=== PATIENT | male | born 1965 | race Caucasian/White ===

== ENCOUNTER → 2017-04-23 | Outpatient (CLI) | payer OTHER, MEDICAID | LOC: FCPNEURO 20:00 | PROVIDERS: ATTEND Psychiatry & Neurology Sleep Medicine | DX: G47.33 Obstructive sleep apnea (adult) (pediatric) (principal); G47.37 Central sleep apnea in conditions classified elsewhere ==

== ENCOUNTER 2017-12-22 20:38 | Emergency (ER) | payer OTHER, MEDICAID ==
--- NOTE | 2017-12-22 20:48 | EDPHY ---
H & P Time Seen by Provider: 12/22/17 20:48 HPI/ROS: HPI CHIEF COMPLAINT: Bilateral eye drainage HISTORY OF PRESENT ILLNESS: Patient very pleasant 52-year-old male, presents emergency room with 1 day of yellow discharge from both eyes and crusting. He states he thinks this all started after he got some shampoo in his eyes. He denies any pain. Denies fever. Denies visual disturbance or loss of vision or eye pain. However he noted ongoing crusting and drainage from both eyes. He states this initially started in his right eye early today. And then progressed to his left eye. Upon examination here in the emergency room he denies any pain however has yellow discharge pulled in the medial canthus of both eyes as well as crusting on his eyelashes. Concerning for conjunctivitis. Patient wears corrective lenses but not contacts. Patient denies any chemical exposure. Past Medical History: Schizophrenia, diabetes, hypertension Past Surgical History: Abdominal hernia repair Social History: Denies daily use of drugs alcohol tobacco. Family History: Noncontributory. ROS REVIEW OF SYSTEMS: A comprehensive 10 point review of systems is otherwise negative aside from elements mentioned in the history of present illness. Exam Constitutional appears well nontoxic no acute distress triage nursing summary reviewed, vital signs reviewed, awake/alert. Eyes and sclera, EOMI, PERRLA. Visual acuity reviewed. There is some yellow crusting and pooling of drainage in bilateral medial canthus, additionally yellow crusting along the eyelashes bilaterally. Conjunctiva is mildly injected bilaterally. Otherwise extra movements intact. No blepharitis no periorbital cellulitis no proptosis. HENT normal inspection, atraumatic, moist mucus membranes, no epistaxis, neck supple/ no meningismus, no raccoon eyes. Respiratory clear to auscultation bilaterally, normal breath sounds, no respiratory distress, no wheezing. Cardiovascular rate normal, regular rhythm, no murmur, no edema, distal pulses normal. Gastrointestinal soft, non-tender, no rebound, no guarding, normal bowel sounds, no distension, no pulsatile mass. Genitourinary no CVA tenderness. Musculoskeletal no midline vertebral tenderness, full range of motion, no calf swelling, no tenderness of extremities, no meningismus, good pulses, neurovascularly intact. Skin pink, warm, & dry, no rash, skin atraumatic. Neurologic awake, alert and oriented x 3, AAOx3, moves all 4 extremities equally, motor intact, sensory intact, CN II-XII intact, normal cerebellar, normal vision, normal speech. Psychiatric normal mood/affect. Heme/Lymph/Immune no lymphadenopathy. Differential Diagnosis: Includes but is not limited to in a particular order conjunctivitis, viral, bacterial conjunctivitis, blepharitis Medical Decision Making: Plan for this patient will start on Ocuflox eyedrops here in the emergency room. I recommend he use warm compresses and does not rub his eye I also recommend he keep his hands very clean in washes them multiple times per day. Additionally should follow up with his primary care doctor or Ophthalmology. Recommend Ocuflox, warm compresses, do not rub his eyes. Keep his hands clean. Additionally he understands return emergency room if there is worsening symptoms questions or concerns. Final diagnosis conjunctivitis. Source: Patient - Personal History Tetanus Vaccine Date: 2013 - Medical/Surgical History Hx Diabetes: Yes Other PMH: DM. Schizophrenia. touretts. o2 at night. abd hernia repair - Social History Smoking Status: Never smoked Allergies/Adverse Reactions: fluoxetine HCl [From [employer]za[employer]phi] Allergy (Intermediate, Verified 05/04/14 11:12) Home Medications: Medication Instructions Recorded Actos 07/23/10 JANUMET 50-500 MG TABLET 07/23/10 SEROQUEL 07/23/10 ZyPREXA 07/23/10 Glipizide [Glipizide 5 mg (RX)] 5 mg PO DAILY 12/02/12 Abilify 05/04/14 Oxygen At Night 05/04/14 Departure - Departure Disposition: Home, Routine, Self-Care Clinical Impression: Conjunctivitis Qualifiers: Conjunctivitis type: unspecified Laterality: bilateral Qualified Code(s): H10.9 - Unspecified conjunctivitis Condition: Good Instructions: Conjunctivitis (ED) Additional Instructions: 1. Recommend warm compresses to her eyes. 2. Do not rub her eyes. 3. Antibiotics as prescribed. 4. Keep her hands clean wash them thoroughly multiple times per day. Do not touch her eyes. 5. Follow up with her primary care doctor or senior [employer] administrator. Next 24-48 hours. 6. Return emergency room if there is worsening symptoms questions or concerns. Referrals: Elina Olivas MD [Primary Care Provider] - As per Instructions
[2017-12-22] MEDS ORDERED: OFLOXACIN 0.3% SOLN PREPACK OPHT.BTL TAKEHOME ONE (20:55)
[2017-12-22 21:05] VITALS: BP 136/100
== END 2017-12-22 21:20 | disposition home or self-care (01) ==
LOC: CED 20:38
DX: H10.9 Unspecified conjunctivitis (principal); E11.9 Type 2 diabetes mellitus without complications; I10 Essential (primary) hypertension

== ENCOUNTER 2018-01-18 18:46 | Emergency (ER) | payer OTHER, MEDICAID ==
[2018-01-18 19:05] VITALS: BP 151/92
--- NOTE | 2018-01-18 19:16 | EDPHY ---
H & P Time Seen by Provider: 01/18/18 19:01 HPI/ROS: This patient complains of itching red bumps to left flank, left leg and left neck. 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 He explains that he brought his own bending and put on top of the host bed never going underneath sheet. He has also been walking their dogs outside and did notice mosquito that he swatted away on 1 of the walks. He reports the itching is moderate. He has no burning pain or other symptoms. ROS: Constitutional: No fevers HEENT: No complaints new line neuro: No headache or confusion. Integumentary: Again no burning pain no purulent lesions. No intraoral lesions noted by patient. GI: No nausea or vomiting 5 point ROS is otherwise negative. Past Medical/Surgical History: Psychiatric history Smoking Status: Never smoked Physical Exam: Physical Exam Vital signs are normal. General: No acute distress HEENT: No intraoral lesions or lip lesions. Eyes: Pupils equal and react to light. Extraocular motions are intact. Lungs: No respiratory distress. Cardiac: Brisk capillary refill is intact throughout. Skin: The patient has an isolated erythematous papule 1 cm sized to the left trapezius region, 5 discrete papules to the left flank and 1 to the left leg. There is slight desquamation to the left leg lesion due to scratching repeatedly. There is no associated erythema warmth to touch fluctuance any these lesions. No foreign bodies on direct examination. Neuro: Alert and oriented Initial differential diagnosis: Mosquito bites, doubt bed bugs given history, doubt zoster, contact dermatitis Constitutional: Initial Vital Signs Temperature (C) 36.8 C 01/18/18 19:03 Heart Rate 100 01/18/18 19:03 Respiratory Rate 18 01/18/18 19:03 Blood Pressure 151/92 H 01/18/18 19:03 O2 Sat (%) 90 L 01/18/18 19:03 O2 Delivery Mode Room Air Allergies/Adverse Reactions: fluoxetine HCl [From Prozac] Allergy (Intermediate, Verified 01/18/18 19:05) Home Medications: Medication Instructions Recorded SEROQUEL 07/23/10 ZyPREXA 07/23/10 Abilify 05/04/14 Oxygen At Night 05/04/14 Lorazepam 12/22/17 Metformin HCl 12/22/17 Victoza 3-Tien 12/22/17 Ascorbic Acid [Vitamin C 250 mg 01/18/18 (*)] Aspirin [Aspirin 81mg (*)] 01/18/18 Calcium Carb/Vitamin D3/Vit K1 01/18/18 [Calcium + D Soft Chewable Tab] Ergocalciferol (Vitamin D2) 01/18/18 [Vitamin D2] Folic Acid 01/18/18 Folic Acid 1 MG (*) 01/18/18 Glimepiride 1 mg PO 01/18/18 Hydrocortisone 0.2% Valerate 1 alie TP BID #5 g 01/18/18 [Westcort 0.2% Cream (*)] Insulin Glargine [Lantus 100 01/18/18 UNITS/ML (*)] Lactobacillus Acidophilus 01/18/18 [Probiotic] Lactobacillus Acidophilus 01/18/18 [Probiotic] Loperamide HCl [Loperamide] 1 mg PO 01/18/18 Multivitamins [Multivitamin (*)] 01/18/18 Nystatin Powder [Mycostatin Powder] 01/18/18 Omeprazole 01/18/18 PARoxetine HCL [Paxil 10mg (*)] 01/18/18 Pravastatin Sodium 01/18/18 [place] 01/18/18 clonIDINE [Catapres (*)] 01/18/18 hydrOXYzine HCL [Hydroxyzine HCl] 50 - 100 mg PO QID PRN #30 tablet 01/18/18 MDM/Departure - MDM ED Course/Re-evaluation: The leg wound is cleaned by our nurse and a Band-Aid applied to discourage scratching. Will treat the patient with hydrocortisone cream and hydroxyzine if needed for itching. I counseled regarding ischemia bites. He understands need to return to return if she develops significant worsening despite treatment plan - Depart Disposition: Home, Routine, Self-Care Clinical Impression: Insect bites Qualifiers: Encounter type: initial encounter Qualified Code(s): W57.XXXA - Bitten or stung by nonvenomous insect and other nonvenomous arthropods, initial encounter Condition: Good Instructions: Insect Bite or Sting (ED) Additional Instructions: Diagnosis: Insect bites These insect bites or likely mosquito bites. Plan: Apply Westcort steroid cream 2 times a day until symptoms resolved Hydroxyzine antihistamine if needed for itching. Follow up with her primary care physician for any ongoing symptoms. Return for any significant worsening despite the treatment plan Prescriptions: Hydrocortisone 0.2% Valerate [Westcort 0.2% Cream (*)] 1 alie TP BID #5 g hydrOXYzine HCL [Hydroxyzine HCl] 50 - 100 mg PO QID PRN #30 tablet PRN Reason: Itching Referrals: Elina Olivas MD [Primary Care Provider] - As per Instructions
== END 2018-01-18 19:30 | disposition home or self-care (01) ==
LOC: CED 18:46
DX: S80.862A Insect bite (nonvenomous), left lower leg, initial encounter (principal); S30.861A Insect bite (nonvenomous) of abdominal wall, initial encounter; Z79.82 Long term (current) use of aspirin; W57.XXXA Bitten or stung by nonvenomous insect and other nonvenomous arthropods, initial encounter; Y92.009 Unspecified place in unspecified non-institutional (private) residence as the place of occurrence of the external cause

== ENCOUNTER → 2018-08-26 | Outpatient (CLI) | payer OTHER, MEDICAID | LOC: CIMAGING 15:46 | PROVIDERS: ATTEND Internal Medicine | DX: M54.9 Dorsalgia, unspecified (principal); R26.81 Unsteadiness on feet; Z91.81 History of falling | CPT/HCPCS: 72080-PO ==

== ENCOUNTER → 2018-10-12 | Outpatient (CLI) | payer OTHER, MEDICAID | LOC: CIMAGING 12:49 | PROVIDERS: ATTEND Emergency Medicine | DX: M16.11 Unilateral primary osteoarthritis, right hip (principal) | CPT/HCPCS: 73502-PO ==